=== PATIENT | female | born 1945 | race Caucasian/White ===

== ENCOUNTER → 2017-01-22 06:30 | Day surgery (SDC) | payer MEDICARE ==
--- NOTE | 2017-01-01 10:26 | HP ---
PREOPERATIVE HISTORY AND PHYSICAL: DATE OF SURGERY/ADMISSION: 01/22/17 PROCEDURE: Right carpal tunnel release. CHIEF COMPLAINT: Right hand numbness and tingling. HISTORY OF PRESENT ILLNESS: This is a 71-year-old female who complains of numbness, tingling and pa in in her right hand since September 2016. She gets symptoms at night that often times awaken her de spite the fact that she has been trying to wear a brace. She also gets symptoms during the day, par ticularly at work, where she has to use the computer often. She had a nerve conduction study, which showed severe carpal tunnel syndrome on the right. The brace that she has been wearing at night us ed to be helpful but is not as helpful anymore. She is to the point where she would like to proceed with definitive treatment for this problem in the form of a right carpal tunnel release. PAST MEDICAL HISTORY: 1. Hypertension. 2. Hypercholesterolemia. 3. Osteoporosis. PAST SURGICAL HISTORY: 1. Hysterectomy. 2. Tonsillectomy. 3. Breast lump excision. 4. Lipoma excision from back. CURRENT MEDICATIONS: 1. Alendronate sodium 70 mg q. week. 2. Atorvastatin calcium 10 mg daily. 3. Calcium plus D3 600-800 daily. 4. Hydrochlorothiazide 12.5 mg daily. ALLERGIES: 1. CODEINE causes nausea. 2. DARVON, increased pain and ear pressure. 3. TALWIN NX, amplified noise. FAMILY MEDICAL HISTORY: Hypertension and cancer. 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 She is a current smoker. She smokes a pack per day and has done so for the past 53 years. She denies recreational drug use, admits to alcohol use on rare occasion. REVIEW OF SYSTEMS: General: Negative for fevers, chills or night sweats. No known anesthesia prob lems. HEENT: Negative for headache, lightheadedness, or syncopal episodes. Integumentary: Negati ve for abrasions, lesions or open wounds. Cardiothoracic: Negative for chest pain, palpitations or edema. She is positive for hypertension. Pulmonary: Positive for shortness of breath with exertio n, positive for chronic cough. Negative for COPD. GI: Negative for nausea, vomiting, diarrhea, co nstipation or GERD. : Negative for nocturia, urinary frequency or urgency, history of UTIs or kid jenn problems. Musculoskeletal: Positive for current complaint. Positive for osteoporosis. Neurolo gical: Negative for paresthesias, numbness, history of seizure, stroke or epilepsy. Endocrine: Nega tive for diabetes or thyroid issues. Hematologic: Negative for easy bruising, anemia, excessive ble eding or history of DVT. Infectious Disease: Negative for history of MRSA, hepatitis C or HIV. PHYSICAL EXAMINATION GENERAL: Well-developed, well-nourished 71-year-old female in no acute distress. VITAL SIGNS: Height 5 feet 4-3/4 inches, weight 145 pounds. Pulse rate 84, blood pressure 124/68. HEENT: Normocephalic, atraumatic. Pupils are equal, round and reactive to light and accommodation. Extraocular movements are intact. NECK: Supple. No palpable lymph nodes. Throat is clear. PULMONARY: Lungs are clear to auscultation bilaterally. No wheezes, rales or rhonchi. CARDIOTHORACIC: Regular rate and rhythm. S1, S2. No murmurs, rubs or gallops. No edema. ABDOMEN: Positive bowel sounds. Soft, nontender. MUSCULOSKELETAL: On exam of her right hand, she has mild thenar wasting and mild weakness with thum b abduction. She has full flexion and extension of her fingers. She has full range of motion at the wrist. She has positive Tinel's sign at the wrist. Intact sensation to light touch. NEUROLOGICAL: Alert and oriented x3. Cranial nerves II through XII are intact. Sensation is intact to light touch. IMAGING STUDIES: EMG nerve conduction study shows evidence of right chronic severe carpal tunnel s yndrome. IMPRESSION: Right carpal tunnel syndrome. PLAN: The patient is scheduled to undergo a right carpal tunnel release with Dr. Aguilar on 01/22/17. She will return to the office 10 to 14 days postop for followup and suture removal. A prescriptio n for Ultracet was e-scribed to the patient's pharmacy for postoperative pain management. YASMIN RUIZ [id number]/[facility] #: [id number]
[~2017-01-22 06:30] MED LIST: Acetaminophen TAB* 325 MG PO PRN; Buffered Lidocaine 1% SYRIN* 3 ML/SYR SYRINGE INTRADERM ONE; Dexamethasone IV* 4 MG/ML 1 ML (4 MG) ONE; Famotidine IV* 10 MG/ML 2 ML (20 mg) ONE; Ketorolac INJ* 30 MG/ML 1 ML VIAL ONE; Lidocaine 1% INJ* 10 MG/ML 30 ML SDV ONE; Lidocaine 2% PF* 5 ML VIAL ONE; Midazolam* 1 MG/ML 2 ML VIAL (2 MG) ONE; Ondansetron INJ* 2 MG/ML VIAL IV PRN; PROCHLORPERAZINE INJ 5 MG/ML 2 ML VIAL IV PRN; Propofol* 10 MG/ML 20 ML BTL IV PUSH ONE; fentaNYL* 50 MCG/ML 2 ML VIAL (100 MCG VIAL) ONE
[2017-01-22 08:38] VITALS: BP 118/56
--- NOTE | 2017-01-23 05:37 | OP ---
OPERATIVE NOTE: DATE OF OPERATION: 01/22/17 - [facility] DATE OF : 41 SURGEON: Marga Aguilar MD [employer] SERV[employer] WORKER: YASMIN Motta ANESTHESIOLOGIST: Leonidas Dinh MD ANESTHESIA: Local MAC. PRE-OP DIAGNOSIS: Right carpal tunnel syndrome. POST-OP DIAGNOSIS: Right carpal tunnel syndrome. OPERATIVE PROCEDURE: Right carpal tunnel release. ESTIMATED BLOOD LOSS: Zero. TOURNIQUET TIME: 5 minutes. INDICATIONS: Eliz is a 71-year-old female with numbness and tingling in the median nerve distribution of her right hand. She presents for right carpal tunnel release. DESCRIPTION OF PROCEDURE: The patient was brought to the operating room, was given a sedation anesthetic, and a local infiltration with 10 cc of 1% plain lidocaine. The skin of her right hand and forearm was prepped and draped in the usual sterile fashion. The hand and forearm were exsanguinated and the tourniquet was elevated to 250 mmHg. A longitudinal incision was made in the palm in line with the ring finger, dissected through the subcutaneous tissue, down to the transverse carpal ligament. The ligament was divided sharply with the knife and then more proximally with the scissors. The nerve was dissected free from the surrounding tissue and there was an area of marked compression in the mid portion of the ligament. The wound was irrigated and the skin edges were reapproximated with 4-0 nylon sutures. The wound was dressed with Xeroform , 4x4, Webril, and an Yung wrap. The patient tolerated the procedure well and was brought to the recovery room in good condition. [id number]/[facility] #: [id number] MTDD
== END | disposition home or self-care (01) ==
LOC: OREAST 06:30
PROVIDERS: ATTEND Orthopaedic Surgery
DX: G56.01 Carpal tunnel syndrome, right upper limb (principal); F17.210 Nicotine dependence, cigarettes, uncomplicated; I10 Essential (primary) hypertension; E78.00 Pure hypercholesterolemia, unspecified; M81.0 Age-related osteoporosis without current pathological fracture
CPT/HCPCS: J1100; J1885; J2001; J2250; J2704; J3010

== ENCOUNTER 2019-07-18 08:43 | Day surgery (SDC) | payer MEDICARE ==
--- NOTE | 2019-07-12 15:20 | HP ---
PREOPERATIVE HISTORY AND PHYSICAL: DATE OF SURGERY/ADMISSION: 07/18/[address] [facility] DATE OF OFFICE VISIT/ENCOUNTER: 07/10/19 ATTENDING SURGEON: Marga Aguilar MD.* (DICTATED BY YASMIN RUIZ) PROCEDURE: Left wrist carpal tunnel release, ulnar nerve decompression at the elbow. HISTORY OF PRESENT ILLNESS: This is a 74-year-old female who complains of pain , numbness, and tingling in her left hand involving all of her fingers. Sometimes the pain radiates up her arm. She denies any known injury. She has had these symptoms for about 5 months and symptoms were progressively worsening. She had a recent nerve conduction study ordered by Dr. Rivas which showed ulnar neuropathy at the left elbow and left carpal tunnel syndrome. She several years ago had a right carpal tunnel release performed and did very well with that. She is interested in pursuing surgical intervention for her left arm at this time. PAST MEDICAL HISTORY: 1. Hypertension. 2. High cholesterol. PAST SURGICAL HISTORY: 1. Hysterectomy. 2. Tonsillectomy. 3. Breast biopsy x2. 4. Right carpal tunnel release. CURRENT MEDICATIONS: 1. Alendronate sodium 70 mg weekly. 2. Atorvastatin calcium 10 mg daily. 3. Calcium plus D3 600-800 one tab daily. 4. Losartan potassium 25 mg daily. 5. Multivitamin. 6. Tylenol Extra Strength 500 mg 1 to 2 tabs q.6 hours p.r.n. ALLERGIES: 1. CODEINE causes nausea. 2. TALWIN causes hearing disruption. 3. DARVON causes feelings of pressure and pain. 4. CHANTIX, reaction unknown. 5. ZYBAN, reaction unknown. FAMILY MEDICAL HISTORY: Hypertension and cancer. 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 She is a current smoker. She smokes a pack per day, has done so over the past 55 years. She denies recreational drug use. She drinks alcohol on rare occasion. REVIEW OF SYSTEMS: Negative for general, cephalic, cardiovascular, respiratory , GI, , other musculoskeletal, integumentary, endocrine, neurologic, and hematologic symptoms. Infectious disease: Negative for MRSA, hepatitis C, HIV. PHYSICAL EXAMINATION GENERAL: Well-developed, well-nourished 74-year-old female, in no acute distress. VITAL SIGNS: Height 5 feet 5-1/4 inch, weight 148 pounds, pulse rate 84, blood pressure 138/66. HEENT: Normocephalic, atraumatic. Pupils are equal, round, and reactive to light and accommodation. Extraocular movements are intact. NECK: Supple. No palpable lymph nodes. Throat is clear. PULMONARY: Lungs are clear to auscultation bilaterally. No wheezes, rales, or rhonchi. CARDIOVASCULAR : Regular rate and rhythm. S1, S2. No murmurs, rubs, or gallop. No edema. ABDOMEN: Positive bowel sounds, soft, nontender. MUSCULOSKELETAL: On exam of her left upper extremity, she has some first dorsal interosseous wasting and some thenar wasting. She has weakness with thumb abduction and finger abduction. She has a positive Tinel sign at the ulnar nerve at the elbow and the median nerve at the wrist. She has decreased sensation in her median nerve distribution, more or so than in her ulnar nerve distribution. NEUROLOGIC: Alert and oriented x3. Cranial nerves II through XII are intact. SKIN: Intact. IMPRESSION: Left wrist carpal tunnel syndrome, ulnar nerve compression at the elbow. PLAN: The patient is scheduled to undergo a left wrist carpal tunnel release and an ulnar nerve decompression at the elbow with Dr. Aguilar on 07/18/19. She will return to the office 10 days postop for followup and suture removal. A prescription for Kayenta was e-scribed to the patient's pharmacy for postoperative pain management. YASMIN RUIZ [id number]/[facility] #: [id number] RATNA
[~2019-07-18 08:43] MED LIST changes: -Acetaminophen TAB* 325 MG PO PRN; +Buffered Lidocaine 1% SYRIN* 1 ML/SYRINGE INTRADERM ONE; -Buffered Lidocaine 1% SYRIN* 3 ML/SYR SYRINGE INTRADERM ONE; +Dexamethasone IV* 4 MG/ML 1 ML (4 MG) IV SLOW PU ONE; -Ketorolac INJ* 30 MG/ML 1 ML VIAL ONE; +Lactated Ringers 1000 ML Bag* 1,000 ML IV SCH; -Lidocaine 1% INJ* 10 MG/ML 30 ML SDV ONE; -Lidocaine 2% PF* 5 ML VIAL ONE; -Midazolam* 1 MG/ML 2 ML VIAL (2 MG) ONE; -Ondansetron INJ* 2 MG/ML VIAL IV PRN; -PROCHLORPERAZINE INJ 5 MG/ML 2 ML VIAL IV PRN; -Propofol* 10 MG/ML 20 ML BTL IV PUSH ONE; -fentaNYL* 50 MCG/ML 2 ML VIAL (100 MCG VIAL) ONE
[2019-07-18] MEDS ORDERED: ceFAZolin 2 GM PREMIX in ORs 2 GM/50 ML BAG ONE (09:00)
[2019-07-18] MEDS ORDERED: Famotidine IV* 10 MG/ML 2 ML (20 mg) ONE (09:01)
[2019-07-18] MEDS ORDERED: Dexamethasone IV* 4 MG/ML 1 ML (4 MG) ONE (09:01)
[2019-07-18] MEDS ORDERED: HYDROcodone/ACETAMIN 5-325 MG* 1 TAB PO PRN (09:16)
[2019-07-18] MEDS ORDERED: Acetaminophen TAB* 325 MG PO PRN (09:16)
[2019-07-18] MEDS ORDERED: DiMENhydriNATE IV* 50 MG/ML VIAL IV PUSH PRN (09:16)
[2019-07-18] MEDS ORDERED: oxyCODONE/Acetamin 5/325 MG* TAB PO PRN (09:16)
[2019-07-18] MEDS ORDERED: fentaNYL* 50 MCG/ML 2 ML VIAL (100 MCG VIAL) IV PRN (09:16)
[2019-07-18] MEDS ORDERED: Ketorolac INJ* 30 MG/ML 1 ML VIAL IV PRN (09:16)
[2019-07-18] MEDS ORDERED: Naloxone* 0.4 MG/ML 1 ML VIAL IV PRN (09:16)
[2019-07-18] MEDS: Famotidine IV* 10 MG/ML 2 ML (20 mg) IV ONE ×2 (09:28→09:29)
[2019-07-18] MEDS ORDERED: Midazolam* 1 MG/ML 2 ML VIAL (2 MG) ONE (10:01)
[2019-07-18] MEDS ORDERED: Propofol* 10 MG/ML 20 ML BTL ONE (10:01)
[2019-07-18] MEDS ORDERED: Lidocaine 2% PF * 5 ML VIAL ONE (10:01)
[2019-07-18] MEDS ORDERED: fentaNYL* 50 MCG/ML 2 ML VIAL (100 MCG VIAL) ONE (10:01)
[2019-07-18] MEDS ORDERED: Lidocaine 1% INJ* 10 MG/ML 30 ML SDV ONE (10:06)
[2019-07-18] MEDS ORDERED: Bupivacaine 0.5% SDV PF* 30ML VIAL ONE (10:06)
[2019-07-18] MEDS ORDERED: Ondansetron INJ* 2 MG/ML VIAL ONE (10:58)
[2019-07-18 11:37] VITALS: BP 125/61
--- NOTE | 2019-07-18 20:06 | OP ---
DATE OF OPERATION: 07/18/19 - [facility] DATE OF : 41 SURGEON: Marga Aguilar MD HEMP FIBER TAKER OFF: YASMIN Motta ANESTHESIA: Local MAC. PRE-OP DIAGNOSES: Left ulnar nerve compression at the elbow and left carpal tunnel syndrome. POST-OP DIAGNOSES: Left ulnar nerve compression at the elbow and left carpal tunnel syndrome. OPERATIVE PROCEDURE: Left carpal tunnel release and left ulnar nerve decompression at the elbow. ESTIMATED BLOOD LOSS: Zero. TOURNIQUET TIME: About 35 minutes. INDICATION: Eliz is a 74-year-old female who has numbness and tingling in her left hand consistent with ulnar nerve compression at the elbow and median nerve compression at the wrist. She presents for decompression of both nerves. DESCRIPTION OF PROCEDURE: The patient was brought to the operating room and was given a sedation anesthetic and a local infiltration of 10 cc of 1% plain lidocaine in the palm of her left hand and 10 cc of 0.5% plain Marcaine on the medial aspect of the left elbow. The skin of her left upper extremity was prepped and draped in usual sterile fashion. The hand and forearm were exsanguinated and the tourniquet elevated to 250 mmHg. A longitudinal incision was made at the palm in line with the ring finger. We dissected through the subcutaneous tissue down to the transverse carpal ligament. The ligament was divided sharply with the knife and then more proximally with the scissors. The nerve was dissected free from surrounding tissue and there was an area of moderate compression at the mid portion of the ligament. The wound was irrigated and the skin edges reapproximated with 4- 0 nylon suture. Next, a curvilinear incision was made centered between the medial epicondyle and the tip of olecranon process, dissected through the subcutaneous tissue down to the ulnar nerve just proximal to the elbow joint. We carefully dissected out proximally through the cubital tunnel and then distally at the FCU fascia. It was completely released over this entire length. The medial intermuscular septum was then divided and the wound was copiously irrigated with saline. The nerve was in good condition with maximal compression at the cubital tunnel. The subcutaneous tissue was closed with 3-0 Vicryl suture and the skin with skin ab. The wounds were dressed with Xeroform, 4x4, Webril, and Yung wrap. The patient tolerated the procedure well and was brought to the recovery room in good condition. [id number]/[facility] #: [id number] RATNA
== END 2019-07-18 11:55 | disposition home or self-care (01) ==
LOC: OREAST 08:43
PROVIDERS: ATTEND Orthopaedic Surgery
DX: G56.02 Carpal tunnel syndrome, left upper limb (principal); G56.22 Lesion of ulnar nerve, left upper limb; I10 Essential (primary) hypertension; E78.00 Pure hypercholesterolemia, unspecified; Z72.0 Tobacco use; E78.5 Hyperlipidemia, unspecified
CPT/HCPCS: J0690; J1100; J2250; J2405; J2704; J3010; J3490